=== PATIENT | female | born 1995 | race Caucasian/White ===

== ENCOUNTER 2018-06-25 00:30 | Emergency (ER) | payer MEDICAID ==
[2018-06-25] MEDS ORDERED: Sodium Chloride 0.9% 10 ML Syringe FLUSH PRN (00:54)
[2018-06-25] MEDS ORDERED: Sodium Chloride 0.9% 1,000 ML IV ONE (00:54)
--- NOTE | 2018-06-25 01:06 | EDM.PDOC ---
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 Pt denies vaginal bleed, denies vaginal discharge. Pt denies dysuria , frequency or urgency. Pt without nausea/vomiting. Pt with recent history of C diff and currently tapering vancomycin but denies any diarrhea/constipation or increased flatus. Pt without fever/chills. No back pain. Pt reports pain is worse with standing and walking and improved with lying down. Onset: Today Duration: Hour(s): (2) Location: Reports: Pelvis Quality: Reports: Ache Severity: Moderate Improves with: Reports: Rest Worsens with: Reports: Movement Associated Symptoms: Reports: No Other Symptoms. Denies: Cough, Fever/Chills, Nausea/Vomiting, Shortness of Breath right lower abdomen Pain Score (Numeric/FACES): 8 - Related Data Allergies Allergy/AdvReac Type Severity Reaction Status Date / Time venom-honey bee Allergy Swelling Verified 06/25/18 00:59 [bee venom (honey bee)] Home Meds: Home Meds Ondansetron [Zofran ODT] 4 mg PO Q6H PRN 05/10/18 [History] PNV95/Ferrous Fumarate/FA [ Tablet] 1 tab PO DAILY 05/10/18 [History] Acetaminophen [Tylenol] 650 mg PO Q4H PRN tablet 05/12/18 [Rx] Ferrous Sulfate 200 mg PO MoWeFr@0800 05/31/18 [History] Promethazine [Phenergan] 25 mg PO Q6H PRN 05/31/18 [History] Cephalexin [Keflex] 500 mg PO Q8HR #18 capsule 06/25/18 [Rx] Vancomycin HCl 125 mg PO ASDIRECTED 06/25/18 [History] Past Medical History HEENT History: Reports: Impaired Vision Cardiovascular History: Reports: None Respiratory History: Reports: None Gastrointestinal History: Reports: None Genitourinary History: Reports: None 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, , 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 Musculoskeletal History: Reports: None Neurological History: Reports: None Other Neuro History: complains of dizziness today Psychiatric History: Reports: Anxiety, Depression, Panic Attack Endocrine/Metabolic History: Reports: None Hematologic History: Reports: None Immunologic History: Reports: None Oncologic (Cancer) History: Reports: None - Infectious Disease History Infectious Disease History: Reports: C-Difficile, Chicken Pox - Past Surgical History Female Surgical History: Reports: D&C Social & Family History - Family History Family Medical History: Noncontributory - Caffeine Use Caffeine Use: Reports: None ED ROS GENERAL - Review of Systems Review Of Systems: See Below Constitutional: Reports: No Symptoms HEENT: Reports: No Symptoms Respiratory: Reports: No Symptoms Cardiovascular: Reports: No Symptoms Endocrine: Reports: No Symptoms GI/Abdominal: Reports: Abdominal Pain. Denies: Black Stool, Bloody Stool, Constipation, Diarrhea, Decreased Appetite, Flatus, Hematemesis, Hematochezia, Melena, Nausea, Vomiting : Reports: No Symptoms Musculoskeletal: Reports: No Symptoms Skin: Reports: No Symptoms Neurological: Reports: No Symptoms Psychiatric: Reports: No Symptoms Hematologic/Lymphatic: Reports: No Symptoms ED EXAM - Physical Exam Exam: See Below Exam Limited By: No Limitations General Appearance: Alert, WD/WN, No Apparent Distress Head: Atraumatic, Normocephalic Neck: Normal Inspection, Supple, Non-Tender, Full Range of Motion Respiratory/Chest: No Respiratory Distress, Lungs Clear, Normal Breath Sounds, No Accessory Muscle Use, Chest Non-Tender Cardiovascular: Normal Peripheral Pulses, Regular Rate, Rhythm, No Edema, No Gallop, No JVD, No Murmur, No Rub Fundal Height In cm: 21 (Female) Exam: Other (patient deferred due to no vaginal bleeding or discharge at this time) Heart Tones per Min: 161 Movement: Active Back Exam: Normal Inspection, Full Range of Motion, NT Extremities: Normal Inspection, Normal Range of Motion, Non-Tender, Normal Capillary Refill, No Pedal Edema Neurological: Alert, Oriented, CN II-XII Intact, Normal Cognition, Normal Gait, Normal Reflexes, No Motor/Sensory Deficits Psychiatric: Normal Affect, Normal Mood Skin Exam: Warm, Dry, Intact, Normal Color, No Rash Lymphatic: No Adenopathy Course - Vital Signs Last Recorded V/S: Last Vital Signs Temp 36.2 C 06/25/18 00:46 Pulse 88 06/25/18 00:46 Resp 16 06/25/18 00:46 BP 125/58 L 06/25/18 00:46 Pulse Ox 98 06/25/18 00:46 - Orders/Labs/Meds Orders: Active Orders 24 hr Category Date Time Status Peripheral IV Care [RC] . DIRECTED Care 06/25/18 00:54 Active CULTURE URINE [RM] Stat Lab 06/25/18 01:27 Ordered Sodium Chloride 0.9% @ 999 MLS/HR (1000ml) Med 06/25/18 00:54 Ordered Sodium Chloride 0.9% [Normal Saline] 1,000 ml IV .BOLUS Sodium Chloride 0.9% [Saline Flush] Med 06/25/18 00:54 Ordered 10 ml FLUSH Q8HR PRN Peripheral IV Insertion Adult [OM.PC] Routine Oth 06/25/18 00:54 Ordered Medication Orders Sodium Chloride (Normal Saline) 1,000 mls @ 999 mls/hr IV .BOLUS ONE Stop: 06/25/18 01:54 Last Admin: 06/25/18 01:23 Dose: 999 mls/hr Sodium Chloride (Saline Flush) 10 ml FLUSH Q8HR PRN PRN Reason: keep vein open Labs: Laboratory Tests 06/25/18 06/25/18 06/25/18 Range/Units 01:00 01:00 01:00 WBC 7.20 (5.00-10.00) 10^3/uL RBC 3.03 L (3.80-5.50) 10^6/uL Hgb 10.2 L (12.0-16.0) g/dL Hct 30.2 L (37.0-47.0) % MCV 99.7 H (82.0-92.0) fL MCH 33.7 H (27.0-31.0) pg MCHC 33.8 (32.0-36.0) g/dL RDW 13.2 (11.5-14.5) % Plt Count 280 (150-400) 10^3/uL MPV 8.5 (7.4-10.4) fL Immature Gran % (Auto) 0.7 (0.0-5.0) % Neut % (Auto) 61.8 (50.0-70.0) % Lymph % (Auto) 23.6 (20.0-40.0) % [place] % (Auto) 7.2 (2.0-8.0) % Eos % (Auto) 6.4 H (1.0-3.0) % Baso % (Auto) 0.3 (0.0-1.0) % Immature Gran # (Auto) 0.05 (0.00-0.50) 10^3/uL Neut # (Auto) 4.45 (2.50-7.00) 10^3/uL Lymph # (Auto) 1.70 (1.00-4.00) 10^3/uL [place] # (Auto) 0.52 (0.10-0.80) 10^3/uL Eos # (Auto) 0.46 H (0.10-0.30) 10^3/uL Baso # (Auto) 0.02 (0.00-0.10) 10^3/uL Sodium 139 (136-145) mmol/L Potassium 3.7 (3.3-5.3) mmol/L Chloride 102 (98-115) mmol/L Carbon Dioxide 25.9 (21.0-32.0) mmol/L Anion Gap 14.8 (5-15) mmol/L BUN 7 (6-25) mg/dL Creatinine 0.51 (0.51-1.17) mg/dL Est Cr Clr Drug Dosing 124.28 mL/min Estimated GFR (MDRD) > 60 mL/min Glucose 82 (75 - 99) mg/dL Calcium 8.5 L (8.7-10.3) mg/dL Specimen Type Urinvoid Urine Color Light yellow (YELLOW) Urine Appearance Turbid H (CLEAR) Urine pH 7.0 (5.0-9.0) Ur Specific [place] 1.020 (1.005-1.030) Urine Protein Negative (NEGATIVE) mg/dL Urine Glucose (UA) Negative (NEGATIVE) mg/dL Urine Ketones Negative (NEGATIVE) mg/dL Urine Occult Blood Negative (NEGATIVE) Urine Nitrite Negative (NEGATIVE) Urine Bilirubin Negative (NEGATIVE) Urine Urobilinogen 0.2 (0.2-1.0) E.U./dL Ur Leukocyte Esterase Negative (NEGATIVE) Urine RBC 0-5 (0-5) /HPF Urine WBC 0-5 (0-5) /HPF Ur Epithelial Cells Many H /LPF Urine Bacteria Many H (NONE TO FEW) /HPF Meds: Medications Generic Name Dose Route Start Last Admin Trade Name Freq PRN Reason Stop Dose Admin Sodium Chloride 1,000 mls @ 999 mls/hr 06/25/18 00:54 06/25/18 01:23 Normal Saline IV 06/25/18 01:54 999 mls/hr .BOLUS ONE Administration Sodium Chloride 10 ml 06/25/18 00:54 Saline Flush FLUSH Q8HR PRN keep vein open Discontinued Medications Generic Name Dose Route Start Last Admin Trade Name Freq PRN Reason Stop Dose Admin Acetaminophen 1,000 mg 06/25/18 01:08 Tylenol Extra Strength PO 06/25/18 01:09 ONETIME ONE Cephalexin 2,000 mg 06/25/18 01:27 Keflex PO 06/25/18 01:28 ONETIME ONE Departure - Departure Time of Disposition: 01:32 Disposition: Home, Self-Care 01 Condition: Good Clinical Impression: Round ligament pain Pelvic pain affecting Qualifiers: Trimester: second trimester Qualified Code(s): O26.892 - Other specified related conditions, second trimester; R10.2 - Pelvic and perineal pain Urinary tract infection Qualifiers: Hematuria presence: without hematuria - Discharge Information Prescriptions: Cephalexin [Keflex] 500 mg PO Q8HR #18 capsule Instructions: Urine Culture and Sensitivity Testing, and Urinary Tract Infection, Round Ligament Pain Referrals: Maryjane Bentley HEAD TURBINE OPERATOR [Nurse Practitioner] - Forms: ED Department Discharge Additional Instructions: 1. discharge home 2. keflex 500mg PO Q8 x 7 days 3. tylenol 1g PO Q6 PRN for pain 4. plenty of fluids 5. follow up in clinic next 48 hours for recheck and further evaluation and treatment 6. return to ER for worsening symptoms - My Orders Last 24 Hours: My Active Orders 06/25/18 00:54 Peripheral IV Care [RC] . DIRECTED Sodium Chloride 0.9% @ 999 MLS/HR (1000ml) Sodium Chloride 0.9% [Normal Saline] 1,000 ml IV .BOLUS Sodium Chloride 0.9% [Saline Flush] 10 ml FLUSH Q8HR PRN Peripheral IV Insertion Adult [OM.PC] Routine 06/25/18 01:27 CULTURE URINE [RM] Stat - Assessment/Plan Last 24 Hours: My Active Orders 06/25/18 00:54 Peripheral IV Care [RC] . DIRECTED Sodium Chloride 0.9% @ 999 MLS/HR (1000ml) Sodium Chloride 0.9% [Normal Saline] 1,000 ml IV .BOLUS Sodium Chloride 0.9% [Saline Flush] 10 ml FLUSH Q8HR PRN Peripheral IV Insertion Adult [OM.PC] Routine 06/25/18 01:27 CULTURE URINE [RM] Stat Assessment:: 1. pelvic pain- suspect round ligament pain 2. UTI Plan: 1. discharge home 2. keflex 500mg PO Q8 x 7 days 3. tylenol 1g PO Q6 PRN for pain 4. plenty of fluids 5. follow up in clinic next 48 hours for recheck and further evaluation and treatment 6. return to ER for worsening symptoms
[2018-06-25] MEDS ORDERED: Acetaminophen 500 MG Tab PO ONE (01:08)
[2018-06-25] MEDS ORDERED: Cephalexin 250 MG Cap PO ONE (01:27)
[2018-06-25 01:28] LABS: ANION GAP 14.8 mmol/L (5-15); CHLORIDE,CL 102 mmol/L (98-115); SODIUM,NA 139 mmol/L (136-145)
[2018-06-25 06:12] VITALS: BP 116/82
== END 2018-06-25 02:30 | disposition home or self-care (01) ==
LOC: KA.ED 00:30
DX: O26.892 Other specified pregnancy related conditions, second trimester (principal); R10.2 Pelvic and perineal pain; Z79.899 Other long term (current) drug therapy; Z3A.24 24 weeks gestation of pregnancy; Z91.030 Bee allergy status
CPT/HCPCS: 36415; 80048; 81001; 85025; 87086; 87088; 87186; 96360; 99284; A9270-GY; J7030

== ENCOUNTER 2018-07-28 21:31 | Emergency (ER) | payer MEDICAID ==
[2018-07-28] MEDS ORDERED: Sodium Chloride 0.9% 1,000 ML IV ONE (21:46)
[2018-07-28] MEDS ORDERED: Ondansetron 4 MG/2 ML SDV IVPUSH ONE (21:47)
--- NOTE | 2018-07-28 22:23 | EDM.PDOC ---
ED HPI GENERAL MEDICAL PROBLEM - General Chief Complaint: General Stated Complaint: nause influenza Time Seen by Provider: 07/28/18 22:08 Source of Information: Reports: Patient History Limitations: Reports: No Limitations - History of Present Illness INITIAL COMMENTS - FREE TEXT/NARRATIVE: Patient presents with nausea and vomiting that started about 9 hours ago. She has vomited twice. No diarrhea. She also saw her PCP this morning and tested positive for influenza A and started Tamiflu. She is 29 weeks gestation and says the is going well. She says she hasn't been able to keep anything down and tried some Zofran earlier at home; that didn't help so she decided to come in for fluids. - Related Data Allergies Allergy/AdvReac Type Severity Reaction Status Date / Time venom-honey bee Allergy Swelling Verified 06/25/18 00:59 [bee venom (honey bee)] Home Meds: Home Meds Ondansetron [Zofran ODT] 4 mg PO Q6H PRN 05/10/18 [History] PNV95/Ferrous Fumarate/FA [ Tablet] 1 tab PO DAILY 05/10/18 [History] Acetaminophen [Tylenol] 650 mg PO Q4H PRN tablet 05/12/18 [Rx] Ferrous Sulfate 200 mg PO MoWeFr@0800 05/31/18 [History] Oseltamivir [Tamiflu] 75 mg PO BID 07/28/18 [History] Past Medical History HEENT History: Reports: Impaired Vision Cardiovascular History: Reports: None Respiratory History: Reports: None Gastrointestinal History: Reports: None Genitourinary History: Reports: None 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, , 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 Musculoskeletal History: Reports: None Neurological History: Reports: None Other Neuro History: complains of dizziness today Psychiatric History: Reports: Anxiety, Depression, Panic Attack Endocrine/Metabolic History: Reports: None Hematologic History: Reports: None Immunologic History: Reports: None Oncologic (Cancer) History: Reports: None - Infectious Disease History Infectious Disease History: Reports: C-Difficile, Chicken Pox - Past Surgical History Female Surgical History: Reports: D&C Social & Family History - Family History Family Medical History: Noncontributory - Caffeine Use Caffeine Use: Reports: Tea ED ROS GENERAL - Review of Systems Review Of Systems: See Below Constitutional: Reports: Fever (99.2-99.8) HEENT: Reports: Throat Pain. Denies: Ear Pain Respiratory: Reports: Cough. Denies: Shortness of Breath Cardiovascular: Reports: Chest Pain (with cough). Denies: Syncope GI/Abdominal: Reports: Nausea, Vomiting. Denies: Abdominal Pain, Black Stool, Bloody Stool, Constipation, Diarrhea : Denies: Dysuria, Flank Pain, Hematuria Musculoskeletal: Reports: No Symptoms Skin: Denies: Cyanosis, Jaundice, Mottled, Pallor, Diaphoresis Neurological: Denies: Confusion, Seizure, Syncope, Weakness, Change in Speech Psychiatric: Denies: Agitation, Anxiety, Confusion ED EXAM, GENERAL - Physical Exam Exam: See Below Exam Limited By: No Limitations General Appearance: Alert, WD/WN, No Apparent Distress Eye Exam: Bilateral Eye: EOMI, Normal Inspection, PERRL Ears: Normal External Exam, Hearing Grossly Normal Nose: Normal Inspection, No Blood Throat/Mouth: Normal Inspection, Normal Lips, Normal Teeth, Normal Gums, Normal Oropharynx, Normal Voice, No Airway Compromise Head: Atraumatic, Normocephalic Neck: Normal Inspection, Full Range of Motion Respiratory/Chest: No Respiratory Distress, Lungs Clear, Normal Breath Sounds, No Accessory Muscle Use Cardiovascular: Regular Rate, Rhythm, No Murmur GI/Abdominal: Normal Bowel Sounds, Soft, Non-Tender, No Organomegaly, No Distention, No Abnormal Bruit, Other (gravid uterus consistent with stated dates ) Extremities: Normal Inspection, Normal Range of Motion Neurological: Alert, Oriented, Normal Cognition, No Motor/Sensory Deficits Psychiatric: Normal Affect, Normal Mood Skin Exam: Warm, Dry, Intact, Normal Color, No Rash Course - Orders/Labs/Meds Meds: Medications Discontinued Medications Generic Name Dose Route Start Last Admin Trade Name Freq PRN Reason Stop Dose Admin Sodium Chloride 1,000 mls @ 2,000 mls/hr 07/28/18 21:46 Normal Saline IV 07/28/18 22:15 .BOLUS ONE Ondansetron HCl 8 mg 07/28/18 21:47 Zofran IVPUSH 07/28/18 21:48 ONETIME ONE - Re-Assessments/Exams Free Text/Narrative Re-Assessment/Exam: 07/28/18 22:52 Fluids are running. Nausea is better after the IV Zofran and patient was able to take her Tamiflu that she couldn't keep down earlier at home. Discussed findings and treatment plan. Plan to finish the IV fluids then discharge to home. 07/28/18 23:23 Patient feeling better and has been stable throughout ER course. Will discharge to home. Departure - Departure Time of Disposition: 23:22 Disposition: Home, Self-Care 01 Condition: Good Clinical Impression: Influenza A, Third trimester at less than 36 weeks N&V (nausea and vomiting) Qualifiers: Vomiting type: unspecified Vomiting Intractability: unspecified Qualified Code( s): R11.2 - Nausea with vomiting, unspecified - Discharge Information Instructions: Third Trimester of , [id number], Influenza, Adult, [id number], Nausea, Adult Additional Instructions: 1. Try to drink 8 cups of water daily. 2. Continue your Zofran as directed for nausea and vomiting. 3. Follow up with your PCP on Tuesday if the nausea persists. 4. Return to ER as needed.
[2018-07-28 22:27] VITALS: BP 129/42
== END 2018-07-28 23:45 | disposition home or self-care (01) ==
LOC: KA.ED 21:31
DX: O98.513 Other viral diseases complicating pregnancy, third trimester (principal); J10.1 Influenza due to other identified influenza virus with other respiratory manifestations; Z91.030 Bee allergy status
CPT/HCPCS: 96361; 96374; 99283-25; J2405; J7030

== ENCOUNTER 2018-09-11 20:57 | Emergency (ER) | payer MEDICAID ==
[2018-09-11 21:00] VITALS: BP 129/57
--- NOTE | 2018-09-11 21:18 | EDM.PDOC ---
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 Patient states at approximately 8 p.m. this evening , she noticed a small amount of dark vaginal bleeding while taking a bath. Patient states that the has been uneventful, she has had occasional contractions over the last week, but has had no contractions this evening. This is the first time she's had vaginal bleeding during . Patient has history of 1 miscarriage. Patient denies chest pain, shortness of breath, current abdominal contractions, dysuria, diagnosis of placenta previa, or any trauma. Onset: Today Onset Date: 09/11/18 Onset Time: 20:00 Duration: Minutes: Severity: Mild Improves with: Reports: None Worsens with: Reports: None Context: Denies: Activity, Lifting, Trauma Associated Symptoms: Reports: No Other Symptoms - Related Data Allergies Allergy/AdvReac Type Severity Reaction Status Date / Time venom-honey bee Allergy Swelling Verified 09/11/18 20:58 [bee venom (honey bee)] Home Meds: Home Meds Ondansetron [Zofran ODT] 4 mg PO Q6H PRN 05/10/18 [History] PNV95/Ferrous Fumarate/FA [ Tablet] 1 tab PO DAILY 05/10/18 [History] Acetaminophen [Tylenol] 650 mg PO Q4H PRN tablet 05/12/18 [Rx] Ferrous Sulfate 200 mg PO MoWeFr@0800 05/31/18 [History] Past Medical History HEENT History: Reports: Impaired Vision Cardiovascular History: Reports: None Respiratory History: Reports: None Other Respiratory History: current influenza Gastrointestinal History: Reports: None Other Gastrointestinal History: clostridium difficile history Genitourinary History: Reports: None 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, , 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 Musculoskeletal History: Reports: None Neurological History: Reports: None Other Neuro History: complains of dizziness today Psychiatric History: Reports: Anxiety, Depression, Panic Attack Endocrine/Metabolic History: Reports: None Hematologic History: Reports: None Immunologic History: Reports: None Oncologic (Cancer) History: Reports: None - Infectious Disease History Infectious Disease History: Reports: C-Difficile, Chicken Pox - Past Surgical History Female Surgical History: Reports: D&C Social & Family History - Family History Family Medical History: Noncontributory - Caffeine Use Caffeine Use: Reports: Tea ED ROS GENERAL - Review of Systems Review Of Systems: ROS reveals no pertinent complaints other than HPI. Constitutional: Reports: No Symptoms HEENT: Reports: No Symptoms Respiratory: Reports: No Symptoms Cardiovascular: Reports: No Symptoms Endocrine: Reports: No Symptoms GI/Abdominal: Reports: No Symptoms : Reports: Other (Vaginal bleeding in third trimester) Musculoskeletal: Reports: No Symptoms Skin: Reports: No Symptoms Neurological: Reports: No Symptoms Psychiatric: Reports: No Symptoms Hematologic/Lymphatic: Reports: No Symptoms Immunologic: Reports: No Symptoms ED EXAM - Physical Exam Exam: See Below Exam Limited By: No Limitations General Appearance: Alert, WD/WN, No Apparent Distress Throat/Mouth: Normal Inspection, Normal Oropharynx, No Airway Compromise Respiratory/Chest: No Respiratory Distress, Lungs Clear, Normal Breath Sounds, No Accessory Muscle Use, Chest Non-Tender Cardiovascular: Regular Rate, Rhythm Fundal Height In cm: 34 (Female) Exam: Deferred for Placenta Previa, Other (Visualization shows no active vaginal bleeding). No: Vaginal Bleeding Heart Tones per Min: 150 Movement: Not Appreciated Back Exam: Normal Inspection. No: CVA Tenderness (L), CVA Tenderness (R) Extremities: Normal Inspection, No Pedal Edema Neurological: Alert, Oriented, Normal Cognition Psychiatric: Normal Affect, Normal Mood Skin Exam: Warm, Dry, Intact, Normal Color, No Rash Course - Vital Signs Last Recorded V/S: Last Vital Signs Temp 95.9 F 09/11/18 20:59 Pulse 94 09/11/18 20:59 Resp 18 09/11/18 20:59 BP 129/57 L 09/11/18 20:59 Pulse Ox 100 09/11/18 20:59 - Re-Assessments/Exams Free Text/Narrative Re-Assessment/Exam: 09/11/18 21:18 Patient afebrile, nontoxic appearing, vital signs stable. heart tones appreciated at left lateral border and 150 bpm.. Patient denies any contractions at this time. Patient will be discharged and follow-up with OB/ ECHOCARDIOGRAPHY RADIOLOGY TECHNOLOGIST in one to 2 days. Patient will return to the ER sooner if symptoms continue or worsen. Departure - Departure Time of Disposition: 21:20 Disposition: Home, Self-Care 01 Condition: Good Clinical Impression: Third trimester , Vaginal bleeding during - Discharge Information Instructions: Third Trimester of , [id number], Vaginal Bleeding During , Third Trimester, [id number] Additional Instructions: Follow-up with INFORMATION COORDINATOR in next 1-2 days. Return to emergency department sooner if contractions develop, or bleeding continues. - Assessment/Plan Assessment:: Plan: Follow-up with INFORMATION COORDINATOR
== END 2018-09-11 21:26 | disposition home or self-care (01) ==
LOC: KA.ED 20:57
DX: O46.93 Antepartum hemorrhage, unspecified, third trimester (principal); Z3A.36 36 weeks gestation of pregnancy
CPT/HCPCS: 99283

== ENCOUNTER 2018-09-17 16:14 | Emergency (ER) | payer MEDICAID ==
[2018-09-17 16:27] VITALS: BP 117/49
--- NOTE | 2018-09-17 16:53 | EDM.PDOC ---
ED HPI GENERAL MEDICAL PROBLEM - General Chief Complaint: REBAR FABRICATOR Problem Stated Complaint: 36 WEEKS - CRAMPS Time Seen by Provider: 09/17/18 16:20 Source of Information: Reports: Patient History Limitations: Reports: No Limitations - History of Present Illness INITIAL COMMENTS - FREE TEXT/NARRATIVE: Srikanth BRADLEY [id number] 37weeks IUP presents to ER with intermittent abdominal contractions. Pt was seen by REBAR FABRICATOR 2 days ago and told she's 1cm dilated and has lost her mucous plug. Pt reports cramping is mild in character. Pt denies rupture of membranes or any vaginal bleeding. Pt denies dysuria, frequency or urgency. Pt states contractions are infrequent and mild in character. Onset: Today Duration: Hour(s): (8) Location: Reports: Abdomen Severity: Mild Improves with: Reports: None Worsens with: Reports: None Associated Symptoms: Reports: No Other Symptoms Abdominal Pain Score (Numeric/FACES): 7 - Related Data Allergies Allergy/AdvReac Type Severity Reaction Status Date / Time venom-honey bee Allergy Swelling Verified 09/17/18 16:21 [bee venom (honey bee)] Home Meds: Home Meds Ondansetron [Zofran ODT] 4 mg PO Q6H PRN 05/10/18 [History] PNV95/Ferrous Fumarate/FA [ Tablet] 1 tab PO DAILY 05/10/18 [History] Acetaminophen [Tylenol] 650 mg PO Q4H PRN tablet 05/12/18 [Rx] Ferrous Sulfate 200 mg PO MoWeFr@0800 05/31/18 [History] Past Medical History HEENT History: Reports: Impaired Vision Cardiovascular History: Reports: Heart Murmur Respiratory History: Reports: None Other Respiratory History: current influenza Gastrointestinal History: Reports: None Other Gastrointestinal History: clostridium difficile history Genitourinary History: Reports: None REBAR FABRICATOR History: Reports: , Spontaneous Other REBAR FABRICATOR History: Pt currently due October 08, 2018. Pt 2 Musculoskeletal History: Reports: None Neurological History: Reports: None Other Neuro History: complains of dizziness today Psychiatric History: Reports: Anxiety, Depression, Panic Attack Endocrine/Metabolic History: Reports: None Hematologic History: Reports: Anemia Immunologic History: Reports: None Oncologic (Cancer) History: Reports: None Dermatologic History: Reports: None - Infectious Disease History Infectious Disease History: Reports: C-Difficile - Past Surgical History Cardiovascular Surgical History: Reports: None GI Surgical History: Reports: None Female Surgical History: Reports: D&C Musculoskeletal Surgical History: Reports: None Social & Family History - Family History Family Medical History: Noncontributory - Tobacco Use Smoking Status *Q: Never Smoker - Caffeine Use Caffeine Use: Reports: None - Recreational Drug Use Recreational Drug Use: No ED ROS GENERAL - Review of Systems Review Of Systems: See Below Constitutional: Reports: No Symptoms HEENT: Reports: No Symptoms Respiratory: Reports: No Symptoms Cardiovascular: Reports: No Symptoms Endocrine: Reports: No Symptoms GI/Abdominal: Reports: Abdominal Pain. Denies: Nausea, Vomiting : Reports: No Symptoms Musculoskeletal: Reports: No Symptoms Skin: Reports: No Symptoms Neurological: Reports: No Symptoms Psychiatric: Reports: No Symptoms Hematologic/Lymphatic: Reports: No Symptoms Immunologic: Reports: No Symptoms ED EXAM - Physical Exam Exam: See Below Exam Limited By: No Limitations General Appearance: Alert, WD/WN, No Apparent Distress Respiratory/Chest: No Respiratory Distress, Lungs Clear, Normal Breath Sounds, No Accessory Muscle Use, Chest Non-Tender Cardiovascular: Normal Peripheral Pulses, Regular Rate, Rhythm, No Edema, No Gallop, No JVD, No Murmur, No Rub GI/Abdominal Exam: Normal Bowel Sounds, Soft, Non-Tender, No Organomegaly, No Distention, No Abnormal Bruit, No Mass, Pelvis Stable (Female) Exam: Normal Bimanual Exam, Normal External Exam, Normal Speculum Exam, Cervical Dilatation, Enlarged Uterus. No: Cervical Discharge, Cervical Fluid Heart Tones: Present Heart Tones per Min: 145 Movement: Active Back Exam: Normal Inspection, Full Range of Motion, NT Extremities: Normal Inspection, Normal Range of Motion, Non-Tender, Normal Capillary Refill, No Pedal Edema Neurological: Alert, Oriented, CN II-XII Intact, Normal Cognition, Normal Gait, Normal Reflexes, No Motor/Sensory Deficits Psychiatric: Normal Affect, Normal Mood Skin Exam: Warm, Dry, Intact, Normal Color, No Rash Lymphatic: No Adenopathy Course - Vital Signs Last Recorded V/S: Last Vital Signs Temp 36.0 C 09/17/18 16:22 Pulse 67 09/17/18 16:22 Resp 20 09/17/18 16:22 BP 117/49 L 04/21/19 16:22 Pulse Ox 100 09/17/18 16:22 - Re-Assessments/Exams Free Text/Narrative Re-Assessment/Exam: 09/17/18 17:17 toco-monitor- no contractions 45 minutes; no decelerations in HR in 45 minutes Departure - Departure Time of Disposition: 17:18 Disposition: Home, Self-Care 01 Condition: Good Clinical Impression: Casimiro Buchanan' contraction - Discharge Information Instructions: Amelia Buchanan Contractions Referrals: Maryjane Bentley CANTEEN MANAGER [Primary Care Provider] - Forms: ED Department Discharge Additional Instructions: 1. discharge home 2. instructed to return if contractions are less than 5 minutes apart. 3. Increase fluid consumption 4. pelvic rest 5. call/follow up with REBAR FABRICATOR this week for recheck 6. return to ER for worsening symptoms - Assessment/Plan Assessment:: 1. Casimiro Buchanan contractions Plan: 1. discharge home 2. instructed to return if contractions are less than 5 minutes apart. 3. Increase fluid consumption 4. pelvic rest 5. call/follow up with REBAR FABRICATOR this week for recheck 6. return to ER for worsening symptoms
== END 2018-09-17 17:22 | disposition home or self-care (01) ==
LOC: KA.ED 16:14
DX: O47.1 False labor at or after 37 completed weeks of gestation (principal); Z3A.37 37 weeks gestation of pregnancy; Z91.030 Bee allergy status
CPT/HCPCS: 99283

== ENCOUNTER 2018-09-26 10:20 | Emergency (ER) | payer OTHER, MEDICAID ==
[2018-09-26] MEDS ORDERED: Sodium Chloride 0.9% 10 ML Syringe FLUSH PRN (10:48)
[2018-09-26 11:06] VITALS: BP 126/64
--- NOTE | 2018-09-26 11:06 | EDM.PDOC ---
ED HPI GENERAL MEDICAL PROBLEM - General Chief Complaint: MUSIC THERAPY SPECIALIST Problem Stated Complaint: 8.5 MONTHS - CONTRACTIONS? Time Seen by Provider: 09/26/18 11:01 Source of Information: Reports: Patient History Limitations: Reports: No Limitations - History of Present Illness INITIAL COMMENTS - FREE TEXT/NARRATIVE: Patient is a 23-year-old female who presents emergency Department this morning with a complaint of contractions. Patient is 38 weeks 2 days . Patient was seen by MUSIC THERAPY SPECIALIST yesterday, had an ultrasound and was told that progression of was going well. Patient denies any large amount of vaginal fluid, but said she did notice small amount in panty liner today. Patient states that approximately 8 a.m. this morning she developed contractions that were approximately 15-20 minutes apart. She contacted her OB/ INFORMATION SECURITY OFFICER office, but was unsuccessful in speaking to the doctor. She decided to proceed to the ER. Upon presentation to the ER patient was evaluated and found to be in contractions 5 to 6 minutes apart, with heart tones 120-140. There was an acceleration of heart tones, however, no deceleration. Patient denies chest pain, shortness of breath, fever, or any trauma. Onset: Today Onset Date: 09/26/18 Onset Time: 08:00 Duration: Hour(s):, Getting Worse Location: Reports: Abdomen Quality: Reports: Other (Contractions) Severity: Mild Improves with: Reports: None Worsens with: Reports: None Associated Symptoms: Reports: No Other Symptoms. Denies: Chest Pain, Fever/ Chills, Nausea/Vomiting, Shortness of Breath - Related Data Allergies Allergy/AdvReac Type Severity Reaction Status Date / Time venom-honey bee Allergy Swelling Verified 09/26/18 10:49 [bee venom (honey bee)] Home Meds: Home Meds Ondansetron [Zofran ODT] 4 mg PO Q6H PRN 05/10/18 [History] PNV95/Ferrous Fumarate/FA [ Tablet] 1 tab PO DAILY 05/10/18 [History] Acetaminophen [Tylenol] 650 mg PO Q4H PRN tablet 05/12/18 [Rx] Ferrous Sulfate 200 mg PO MoWeFr@0800 05/31/18 [History] Past Medical History HEENT History: Reports: Impaired Vision Cardiovascular History: Reports: Heart Murmur Respiratory History: Reports: None Other Respiratory History: current influenza Gastrointestinal History: Reports: None Other Gastrointestinal History: clostridium difficile history Genitourinary History: Reports: None MUSIC THERAPY SPECIALIST History: Reports: , Spontaneous Other MUSIC THERAPY SPECIALIST History: Pt currently due October 08, 2018. Pt 2 Musculoskeletal History: Reports: None Neurological History: Reports: None Other Neuro History: complains of dizziness today Psychiatric History: Reports: Anxiety, Depression, Panic Attack Endocrine/Metabolic History: Reports: None Hematologic History: Reports: Anemia Immunologic History: Reports: None Oncologic (Cancer) History: Reports: None Dermatologic History: Reports: None - Infectious Disease History Infectious Disease History: Reports: C-Difficile - Past Surgical History Cardiovascular Surgical History: Reports: None GI Surgical History: Reports: None Female Surgical History: Reports: D&C Musculoskeletal Surgical History: Reports: None Social & Family History - Family History Family Medical History: Noncontributory - Caffeine Use Caffeine Use: Reports: None ED ROS GENERAL - Review of Systems Review Of Systems: ROS reveals no pertinent complaints other than HPI. Constitutional: Reports: No Symptoms HEENT: Reports: No Symptoms Respiratory: Reports: No Symptoms Cardiovascular: Reports: No Symptoms Endocrine: Reports: No Symptoms GI/Abdominal: Reports: Abdominal Pain : Reports: No Symptoms Musculoskeletal: Reports: No Symptoms Skin: Reports: No Symptoms Neurological: Reports: No Symptoms Psychiatric: Reports: No Symptoms Hematologic/Lymphatic: Reports: No Symptoms Immunologic: Reports: No Symptoms ED EXAM - Physical Exam Exam: See Below Exam Limited By: No Limitations General Appearance: Alert, WD/WN, No Apparent Distress Throat/Mouth: Normal Inspection, Normal Oropharynx, No Airway Compromise Head: Atraumatic, Normocephalic Neck: Normal Inspection Respiratory/Chest: No Respiratory Distress, Lungs Clear, Normal Breath Sounds, No Accessory Muscle Use, Chest Non-Tender Cardiovascular: Regular Rate, Rhythm, No Murmur (Female) Exam: Deferred for Placenta Previa, Other (Vaginal extrication has pH of 6) Heart Tones per Min: 120 Movement: Not Appreciated Back Exam: Normal Inspection. No: CVA Tenderness (L), CVA Tenderness (R) Extremities: Normal Inspection, No Pedal Edema Neurological: Alert, Oriented, Normal Cognition Psychiatric: Normal Affect, Normal Mood Skin Exam: Warm, Dry, Intact, Normal Color, No Rash ED DELIVERY OF - General Source: Reports: Patient Exam Limitations: Reports: None - History of Present Illness Timing/Duration: Labor Began: Hour(s): ED Add Procedures - Additional/Other Procedure(s) Procedure(s) (Free Text): Vaginal fluid PH level at 6.0 Course - Vital Signs Last Recorded V/S: Last Vital Signs Temp 97.5 F 09/26/18 10:20 Pulse 76 09/26/18 10:20 Resp 20 09/26/18 10:20 BP 126/64 09/26/18 10:20 Pulse Ox 98 09/26/18 10:20 - Orders/Labs/Meds Orders: Active Orders 24 hr Category Date Time Status COMPREHENSIVE METABOLIC PN,CMP [CHEM] Stat Lab 09/26/18 10:47 Ordered HCG QUANTITATIVE [CHEM] Stat Lab 09/26/18 10:47 Ordered Sodium Chloride 0.9% [Normal Saline] 1,000 ml Med 09/26/18 11:30 Active IV ASDIRECTED Sodium Chloride 0.9% [Saline Flush] Med 09/26/18 10:48 Active 10 ml FLUSH Q8HR PRN Saline Lock Insert [OM.PC] Routine Oth 09/26/18 10:48 Ordered Medication Orders Sodium Chloride (Normal Saline) 1,000 mls @ 125 mls/hr IV ASDIRECTED JALEN Sodium Chloride (Saline Flush) 10 ml FLUSH Q8HR PRN PRN Reason: keep vein open Labs: Laboratory Tests 09/26/18 Range/Units 10:50 WBC 8.48 (5.00-10.00) 10^3/uL RBC 3.75 L (3.80-5.50) 10^6/uL Hgb 12.1 D (12.0-16.0) g/dL Hct 35.8 L (37.0-47.0) % MCV 95.5 H D (82.0-92.0) fL MCH 32.3 H (27.0-31.0) pg MCHC 33.8 (32.0-36.0) g/dL RDW 13.0 (11.5-14.5) % Plt Count 226 (150-400) 10^3/uL MPV 10.1 (7.4-10.4) fL Immature Gran % (Auto) 0.6 (0.0-5.0) % Neut % (Auto) 78.0 H (50.0-70.0) % Lymph % (Auto) 14.9 L (20.0-40.0) % [place] % (Auto) 5.1 (2.0-8.0) % Eos % (Auto) 1.2 (1.0-3.0) % Baso % (Auto) 0.2 (0.0-1.0) % Immature Gran # (Auto) 0.05 (0.00-0.50) 10^3/uL Neut # (Auto) 6.62 (2.50-7.00) 10^3/uL Lymph # (Auto) 1.26 (1.00-4.00) 10^3/uL [place] # (Auto) 0.43 (0.10-0.80) 10^3/uL Eos # (Auto) 0.10 (0.10-0.30) 10^3/uL Baso # (Auto) 0.02 (0.00-0.10) 10^3/uL Meds: Medications Generic Name Dose Route Start Last Admin Trade Name Freq PRN Reason Stop Dose Admin Sodium Chloride 1,000 mls @ 125 mls/hr 09/26/18 11:30 Normal Saline IV ASDIRECTED JALEN Sodium Chloride 10 ml 09/26/18 10:48 Saline Flush FLUSH Q8HR PRN keep vein open - Re-Assessments/Exams Free Text/Narrative Re-Assessment/Exam: 09/26/18 11:20 Patient afebrile, vital signs stable, contractions 5-6 minutes apart, heart tones 120-130, acceleration, but no deceleration. Discussed case with Dr. Peralta, MUSIC THERAPY SPECIALIST at [facility]. Recommended transfer to her facility for further care Departure - Departure Time of Disposition: 11:22 Disposition: DC/Tfer to Acute Hospital 02 Condition: Fair Clinical Impression: Intrauterine , Third trimester , related condition in third trimester - Discharge Information Referrals: Maryjane Bentley SENIOR PROJECT MANAGER [Primary Care Provider] - Forms: ED Department Discharge - My Orders Last 24 Hours: My Active Orders 09/26/18 10:47 COMPREHENSIVE METABOLIC PN,CMP [CHEM] Stat HCG QUANTITATIVE [CHEM] Stat 09/26/18 10:48 Sodium Chloride 0.9% [Saline Flush] 10 ml FLUSH Q8HR PRN Saline Lock Insert [OM.PC] Routine 09/26/18 11:30 Sodium Chloride 0.9% [Normal Saline] 1,000 ml IV ASDIRECTED - Assessment/Plan Last 24 Hours: My Active Orders 09/26/18 10:47 COMPREHENSIVE METABOLIC PN,CMP [CHEM] Stat HCG QUANTITATIVE [CHEM] Stat 09/26/18 10:48 Sodium Chloride 0.9% [Saline Flush] 10 ml FLUSH Q8HR PRN Saline Lock Insert [OM.PC] Routine 09/26/18 11:30 Sodium Chloride 0.9% [Normal Saline] 1,000 ml IV ASDIRECTED Assessment:: Plan: Transferred to [facility]
[2018-09-26] MEDS: Sodium Chloride 0.9% 1,000 ML IV SCH (11:30)
[2018-09-26 12:18] LABS: SODIUM,NA 136 mmol/L (136-145)
[2018-09-26 12:19] LABS: CHLORIDE,CL 104 mmol/L (98-115)
== END 2018-09-26 11:50 ==
LOC: KA.ED 10:20
DX: O62.9 Abnormality of forces of labor, unspecified (principal); Z3A.38 38 weeks gestation of pregnancy; Z91.030 Bee allergy status; Z79.899 Other long term (current) drug therapy
CPT/HCPCS: 36415; 80053; 84702; 85025; 99284; 99285; J7030

== ENCOUNTER 2018-11-20 22:03 | Emergency (ER) | payer OTHER, MEDICAID ==
[2018-11-20 22:28] VITALS: BP 103/35
--- NOTE | 2018-11-20 22:45 | EDM.PDOC ---
ED HPI GENERAL MEDICAL PROBLEM - General Chief Complaint: FREIGHT BRAKEMAN Problem Stated Complaint: dysuria/hematuria Time Seen by Provider: 11/20/18 22:20 Source of Information: Reports: Patient History Limitations: Reports: No Limitations - History of Present Illness INITIAL COMMENTS - FREE TEXT/NARRATIVE: 23 YO WF who is 8 weeks post vaginal delivery presents to ER complaining of questionable vaginal bleeding which began earlier in the day. Pt reports she has been wearing pads and noticed after a full day of wearing a panty liner that there was a small amount of blood on the pad. Pt became concerned that she was bleeding from her epitomes sight. Upon further interview pt reports dysuria with frequency which also began today. Pt states the bleeding is not significant and is much less than her normal menstrual bleeding. Pt denies pelvic pain, fever/chills, dizziness, back pain or nausea/vomiting. Onset: Today Severity: Mild Improves with: Reports: None Worsens with: Reports: None Associated Symptoms: Reports: No Other Symptoms. Denies: Fever/Chills, Nausea/ Vomiting, Weakness Perineal Area Pain Score (Numeric/FACES): 5 - Related Data Allergies Allergy/AdvReac Type Severity Reaction Status Date / Time venom-honey bee Allergy Swelling Verified 11/20/18 22:04 [bee venom (honey bee)] Home Meds: Home Meds Ondansetron [Zofran ODT] 4 mg PO Q6H PRN 05/10/18 [History] PNV95/Ferrous Fumarate/FA [ Tablet] 1 tab PO DAILY 05/10/18 [History] Acetaminophen [Tylenol] 650 mg PO Q4H PRN tablet 05/12/18 [Rx] Cephalexin [Keflex] 500 mg PO Q8HR #21 capsule 11/20/18 [Rx] Norethindrone 0.35 mg PO DAILY 11/20/18 [History] oxyCODONE 2.5 mg PO DAILY 11/20/18 [History] Past Medical History HEENT History: Reports: Impaired Vision Cardiovascular History: Reports: Heart Murmur Respiratory History: Reports: None Other Respiratory History: current influenza Gastrointestinal History: Reports: None Other Gastrointestinal History: clostridium difficile history Genitourinary History: Reports: None FREIGHT BRAKEMAN History: Reports: , Spontaneous , Other (See Below) Other FREIGHT BRAKEMAN History: Pt currently due October 08, 2018. Pt 2 Musculoskeletal History: Reports: None Neurological History: Reports: None Other Neuro History: complains of dizziness today Psychiatric History: Reports: Anxiety, Depression, Panic Attack Endocrine/Metabolic History: Reports: None Hematologic History: Reports: Anemia Immunologic History: Reports: None Oncologic (Cancer) History: Reports: None Dermatologic History: Reports: None - Infectious Disease History Infectious Disease History: Reports: C-Difficile - Past Surgical History Cardiovascular Surgical History: Reports: None GI Surgical History: Reports: None Female Surgical History: Reports: D&C Musculoskeletal Surgical History: Reports: None Social & Family History - Family History Family Medical History: Noncontributory - Tobacco Use Smoking Status *Q: Never Smoker - Caffeine Use Caffeine Use: Reports: None Caffeine Use Comment: did not ask - Recreational Drug Use Recreational Drug Use: No ED ROS GENERAL - Review of Systems Review Of Systems: See Below Constitutional: Reports: No Symptoms HEENT: Reports: No Symptoms Respiratory: Reports: No Symptoms Cardiovascular: Reports: No Symptoms Endocrine: Reports: No Symptoms GI/Abdominal: Reports: No Symptoms : Reports: Dysuria, Frequency, Hematuria Musculoskeletal: Reports: No Symptoms Skin: Reports: No Symptoms Neurological: Reports: No Symptoms Psychiatric: Reports: No Symptoms Hematologic/Lymphatic: Reports: No Symptoms Immunologic: Reports: No Symptoms ED EXAM, RENAL/ - Physical Exam Exam: See Below Exam Limited By: No Limitations General Appearance: Alert, WD/WN, No Apparent Distress Head: Atraumatic, Normocephalic Neck: Normal Inspection, Supple, Non-Tender, Full Range of Motion Respiratory/Chest: No Respiratory Distress, Lungs Clear, Normal Breath Sounds, No Accessory Muscle Use, Chest Non-Tender Cardiovascular: Normal Peripheral Pulses, Regular Rate, Rhythm, No Edema, No Gallop, No JVD, No Murmur, No Rub GI/Abdominal: Normal Bowel Sounds, Soft, Non-Tender, No Organomegaly, No Distention, No Abnormal Bruit, No Mass (Female) Exam: Normal External Exam. No: Vaginal Bleeding, Vaginal Discharge , Vaginal Lesions, Vaginal Tears Back Exam: Normal Inspection, Full Range of Motion, NT Extremities: Normal Inspection, Normal Range of Motion, Non-Tender, Normal Capillary Refill, No Pedal Edema Neurological: Alert, Oriented, CN II-XII Intact, Normal Cognition, Normal Gait, Normal Reflexes, No Motor/Sensory Deficits Psychiatric: Normal Affect, Normal Mood Skin Exam: Warm, Dry, Intact, Normal Color, No Rash Lymphatic: No Adenopathy Course - Vital Signs Last Recorded V/S: Last Vital Signs Temp 36.1 C 11/20/18 22:09 Pulse 67 11/20/18 22:25 Resp 14 11/20/18 22:09 BP 103/35 L 11/20/18 22:25 Pulse Ox 97 11/20/18 22:09 Orthostatic Blood Pressure [ 110/51 Standing] Orthostatic Blood Pressure [ 113/40 Sitting] Orthostatic Blood Pressure [ 103/35 Supine] - Orders/Labs/Meds Orders: Active Orders 24 hr Category Date Time Status URINALYSIS W/MICROSCOPIC [UA W/MICROSCOPIC] [URIN] Stat Lab 11/20/18 22:36 Ordered Labs: Laboratory Tests 11/20/18 11/20/18 Range/Units 22:52 22:52 Urine Color Yellow (YELLOW) Urine Appearance Clear (CLEAR) Urine pH 6.0 (5.0-9.0) Ur Specific [place] 1.020 (1.005-1.030) Urine Protein Negative (NEGATIVE) mg/dL Urine Glucose (UA) Negative (NEGATIVE) mg/dL Urine Ketones Negative (NEGATIVE) mg/dL Urine Occult Blood Moderate H (NEGATIVE) Urine Nitrite Negative (NEGATIVE) Urine Bilirubin Negative (NEGATIVE) Urine Urobilinogen 0.2 (0.2-1.0) E.U./dL Ur Leukocyte Esterase Negative (NEGATIVE) Urine HCG, Qual Negative (NEGATIVE) Departure - Departure Time of Disposition: 23:19 Disposition: Home, Self-Care 01 Condition: Good Clinical Impression: Urinary tract infection Qualifiers: Urinary tract infection type: acute cystitis Hematuria presence: with hematuria Qualified Code(s): N30.01 - Acute cystitis with hematuria - Discharge Information Prescriptions: Cephalexin [Keflex] 500 mg PO Q8HR #21 capsule Instructions: Urinary Tract Infection, Adult Referrals: Maryjane Bentley JAVA PROGRAMMER [Primary Care Provider] - Forms: ED Department Discharge - My Orders Last 24 Hours: My Active Orders 11/20/18 22:36 URINALYSIS W/MICROSCOPIC [UA W/MICROSCOPIC] [URIN] Stat - Assessment/Plan Last 24 Hours: My Active Orders 11/20/18 22:36 URINALYSIS W/MICROSCOPIC [UA W/MICROSCOPIC] [URIN] Stat Assessment:: 1. uncomplicated UTI Plan: 1. discharge home 2. keflex 500mg PO Q8 x 7 days 3. urine culture pending 4. follow up with PCP for further evaluation and treatment pending urine culture 5. return to ER for worsening symptoms
[2018-11-20] MEDS ORDERED: Cephalexin 250 MG Cap PO ONE (23:18)
== END 2018-11-20 23:25 | disposition home or self-care (01) ==
LOC: KA.ED 22:03
DX: N30.01 Acute cystitis with hematuria (principal); Z79.899 Other long term (current) drug therapy; Z91.030 Bee allergy status
CPT/HCPCS: 81001; 81025; 87086; 99284; A9270-GY

== ENCOUNTER 2019-07-19 00:01 | Emergency (ER) | payer MEDICAID, OTHER ==
[2019-07-19] MEDS ORDERED: Sodium Chloride 0.9% 1,000 ML IV ONE (00:19)
[2019-07-19] MEDS ORDERED: Ondansetron 4 MG/2 ML SDV IVPUSH ONE (00:20)
--- NOTE | 2019-07-19 00:59 | EDM.PDOC ---
ED HPI GENERAL MEDICAL PROBLEM - General Chief Complaint: General Stated Complaint: nausea/vomiting Time Seen by Provider: 07/19/19 00:30 Source of Information: Reports: Patient History Limitations: Reports: No Limitations - History of Present Illness INITIAL COMMENTS - FREE TEXT/NARRATIVE: 24 YO WF presents to ER complaining of nausea/vomiting which began 8pm tonight. Pt reports she's been unable to tolerate fluids since vomiting began prompting ER evaluation. Pt with PMH of IBD/Ulcerative colitis. Pt denies any fever/chills , no abdominal pain, no diarrhea, no dysuria, or urinary frequency/urgency. Pt reports her IBD has been well controlled since her diagnosis 10/2018. Pt denies any recent illness, no cough/congestion, no shortness of breath or chest discomfort. Pt denies headache/neck pain or dizziness. Duration: Hour(s): (5) Location: Reports: Generalized Severity: Mild Improves with: Reports: None Worsens with: Reports: Eating Associated Symptoms: Reports: No Other Symptoms, Loss of Appetite, Nausea/ Vomiting. Denies: Chest Pain, Cough, Fever/Chills, Headaches, Rash, Shortness of Breath, Syncope - Related Data Allergies Allergy/AdvReac Type Severity Reaction Status Date / Time venom-honey bee Allergy Swelling Verified 07/19/19 01:52 [bee venom (honey bee)] Home Meds: Home Meds Acetaminophen [Tylenol] 650 mg PO Q4H PRN tablet 05/12/18 [Rx] Norethindrone 0.35 mg PO DAILY 11/20/18 [History] Budesonide [Budesonide ER] 9 mg PO QAM 07/19/19 [History] Dicyclomine [Bentyl] 20 mg PO DAILY PRN 07/19/19 [History] Hyoscyamine [Hyomax-SL] 0.125 mg PO DAILY PRN 07/19/19 [History] Ondansetron [Zofran ODT] 4 mg PO Q6H PRN #10 tab.dis 07/19/19 [Rx] azaTHIOprine [Azathioprine] 50 mg PO DAILY 07/19/19 [History] sulfaSALAzine 1,000 mg PO QID 07/19/19 [History] Past Medical History HEENT History: Reports: Impaired Vision Cardiovascular History: Reports: Heart Murmur Respiratory History: Reports: None Other Respiratory History: current influenza Gastrointestinal History: Reports: None Other Gastrointestinal History: clostridium difficile history Genitourinary History: Reports: None SALES CONSULTING DIRECTOR History: Reports: , Spontaneous , Other (See Below) Other SALES CONSULTING DIRECTOR History: Pt currently due October 08, 2018. Pt 2 Musculoskeletal History: Reports: None Neurological History: Reports: None Other Neuro History: complains of dizziness today Psychiatric History: Reports: Anxiety, Depression, Panic Attack Endocrine/Metabolic History: Reports: None Hematologic History: Reports: Anemia Immunologic History: Reports: None Oncologic (Cancer) History: Reports: None Dermatologic History: Reports: None - Infectious Disease History Infectious Disease History: Reports: C-Difficile - Past Surgical History Cardiovascular Surgical History: Reports: None GI Surgical History: Reports: None Female Surgical History: Reports: D&C Musculoskeletal Surgical History: Reports: None Social & Family History - Family History Family Medical History: Noncontributory - Caffeine Use Caffeine Use: Reports: None Caffeine Use Comment: did not ask ED ROS GENERAL - Review of Systems Review Of Systems: See Below Constitutional: Reports: No Symptoms HEENT: Reports: No Symptoms Respiratory: Reports: No Symptoms Cardiovascular: Reports: No Symptoms Endocrine: Reports: No Symptoms GI/Abdominal: Reports: Nausea, Vomiting. Denies: Abdominal Pain : Reports: No Symptoms Musculoskeletal: Reports: No Symptoms Skin: Reports: No Symptoms Neurological: Reports: No Symptoms Psychiatric: Reports: No Symptoms Hematologic/Lymphatic: Reports: No Symptoms Immunologic: Reports: No Symptoms ED EXAM, GENERAL - Physical Exam Exam: See Below Exam Limited By: No Limitations General Appearance: Alert, WD/WN, No Apparent Distress Throat/Mouth: Normal Inspection, Normal Lips, Normal Teeth, Normal Gums, Normal Oropharynx, Normal Voice, No Airway Compromise Head: Atraumatic, Normocephalic Neck: Normal Inspection, Supple, Non-Tender, Full Range of Motion Respiratory/Chest: No Respiratory Distress, Lungs Clear, Normal Breath Sounds, No Accessory Muscle Use, Chest Non-Tender Cardiovascular: Normal Peripheral Pulses, Regular Rate, Rhythm, No Edema, No Gallop, No JVD, No Murmur, No Rub GI/Abdominal: Normal Bowel Sounds, Soft, Non-Tender, No Organomegaly, No Distention, No Abnormal Bruit, No Mass Back Exam: Normal Inspection, Full Range of Motion, NT Extremities: Normal Inspection, Normal Range of Motion, Non-Tender, Normal Capillary Refill, No Pedal Edema Neurological: Alert, Oriented, CN II-XII Intact, Normal Cognition, Normal Gait, Normal Reflexes, No Motor/Sensory Deficits Psychiatric: Normal Affect, Normal Mood Skin Exam: Warm, Dry, Intact, Normal Color, No Rash Lymphatic: No Adenopathy Course - Vital Signs Last Recorded V/S: Last Vital Signs Temp 35.9 C L 07/19/19 00:51 Pulse 94 07/19/19 00:51 Resp 16 07/19/19 00:51 BP 110/60 07/19/19 00:51 Pulse Ox 95 07/19/19 00:51 - Orders/Labs/Meds Labs: Laboratory Tests 07/19/19 07/19/19 07/19/19 Range/Units 00:58 00:58 01:40 WBC 12.79 H (5.00-10.00) 10^3/uL RBC 3.94 (3.80-5.50) 10^6/uL Hgb 12.7 (12.0-16.0) g/dL Hct 37.5 (37.0-47.0) % MCV 95.2 H (82.0-92.0) fL MCH 32.2 H (27.0-31.0) pg MCHC 33.9 (32.0-36.0) g/dL RDW 13.5 (11.5-14.5) % Plt Count 207 (150-400) 10^3/uL MPV 9.9 (7.4-10.4) fL Immature Gran % (Auto) 0.2 (0.0-5.0) % Neut % (Auto) 89.3 H (50.0-70.0) % Lymph % (Auto) 6.7 L (20.0-40.0) % [place] % (Auto) 2.8 (2.0-8.0) % Eos % (Auto) 0.8 L (1.0-3.0) % Baso % (Auto) 0.2 (0.0-1.0) % Immature Gran # (Auto) 0.03 (0.00-0.50) 10^3/uL Neut # (Auto) 11.42 H (2.50-7.00) 10^3/uL Lymph # (Auto) 0.86 L (1.00-4.00) 10^3/uL [place] # (Auto) 0.36 (0.10-0.80) 10^3/uL Eos # (Auto) 0.10 (0.10-0.30) 10^3/uL Baso # (Auto) 0.02 (0.00-0.10) 10^3/uL Sodium 141 (136-145) mmol/L Potassium 3.7 (3.3-5.3) mmol/L Chloride 105 (98-115) mmol/L Carbon Dioxide 25.1 (21.0-32.0) mmol/L Anion Gap 14.6 (5-15) mmol/L BUN 8 (6-25) mg/dL Creatinine 0.68 (0.51-1.17) mg/dL Est Cr Clr Drug Dosing 95.82 mL/min Estimated GFR (MDRD) > 60 mL/min Glucose 101 H (75 - 99) mg/dL Calcium 7.8 L (8.7-10.3) mg/dL Total Bilirubin 0.4 (0.2-1.0) mg/dL AST 17 (15-37) U/L ALT 13 (12-78) U/L Alkaline Phosphatase 48 (46-116) IU/L Total Protein 6.7 (6.4-8.2) g/dL Albumin 3.52 (3.00-4.80) g/dL Lipase 82 (73-393) U/L HCG, Qual Negative (NEGATIVE) Specimen Type . Urine Color Dark yellow H (YELLOW) Urine Appearance Clear (CLEAR) Urine pH 5.5 (5.0-9.0) Ur Specific [place] >= 1.030 (1.005-1.030) Urine Protein Negative (NEGATIVE) mg/dL Urine Glucose (UA) Negative (NEGATIVE) mg/dL Urine Ketones Negative (NEGATIVE) mg/dL Urine Occult Blood Negative (NEGATIVE) Urine Nitrite Negative (NEGATIVE) Urine Bilirubin Negative (NEGATIVE) Urine Urobilinogen 0.2 (0.2-1.0) E.U./dL Ur Leukocyte Esterase Negative (NEGATIVE) Meds: Medications Discontinued Medications Generic Name Dose Route Start Last Admin Trade Name Freq PRN Reason Stop Dose Admin Sodium Chloride 1,000 mls @ 999 mls/hr 07/19/19 00:19 07/19/19 00:47 Normal Saline IV 02/20/20 01:19 999 mls/hr .BOLUS ONE Administration Ondansetron HCl 4 mg 07/19/19 00:20 07/19/19 00:39 Zofran IVPUSH 07/19/19 00:21 4 mg ONETIME ONE Administration Ondansetron HCl 12 mg 07/19/19 01:48 Zofran Odt PO 07/19/19 01:49 ONETIME ONE - Re-Assessments/Exams Free Text/Narrative Re-Assessment/Exam: 07/19/19 01:42 Influenza- neg 07/19/19 01:45 Pt denies abdominal pain. Pt reports nausea improved after zofran. Pt is alert and oriented x 4. Pt afebrile and nontoxic appearing. Departure - Departure Time of Disposition: 02:03 Disposition: Home, Self-Care 01 Condition: Good Clinical Impression: Viral gastroenteritis Leukocytosis, unspecified Qualifiers: Leukocytosis type: leukemoid reaction Qualified Code(s): D72.823 - Leukemoid reaction - Discharge Information Prescriptions: Ondansetron [Zofran ODT] 4 mg PO Q6H PRN #10 tab.dis PRN Reason: Vomiting Instructions: Viral Gastroenteritis, Adult Referrals: Maryjane Bentley, BUILDING ASSOCIATE [Primary Care Provider] - Forms: ED Department Discharge Additional Instructions: 1. discharge home 2. zofran 4mg ODT Q6 as needed for vomiting 3. clear liquid diet and progress as tolerated 4. follow up with PCP if symptoms continue for repeat CBC and further evaluation and treatment next 48-72 hours 5. return to ER for worsening symptoms Sepsis Event Note - Focused Exam Vital Signs: Vital Signs Temp Pulse Resp BP Pulse Ox 07/19/19 00:51 35.9 C L 94 16 110/60 95 Date Exam was Performed: 07/19/19 Time Exam was Performed: 02:03 - Assessment/Plan Assessment:: 1. Viral gastroenteritis 2. mild Leukocytosis Plan: 1. discharge home 2. zofran 4mg ODT Q6 as needed for vomiting 3. clear liquid diet and progress as tolerated 4. follow up with PCP if symptoms continue for repeat CBC and further evaluation and treatment next 48-72 hours 5. return to ER for worsening symptoms
[2019-07-19 01:03] VITALS: BP 110/60; PULSE 94
[2019-07-19 01:35] LABS: ANION GAP 14.6 mmol/L (5-15); CHLORIDE,CL 105 mmol/L (98-115); SODIUM,NA 141 mmol/L (136-145)
[2019-07-19] MEDS ORDERED: Ondansetron 4 MG Tab.DIS PO ONE (01:48)
== END 2019-07-19 02:18 | disposition home or self-care (01) ==
LOC: SUPCPDRO 00:01 → KA.ED 00:01
DX: A08.4 Viral intestinal infection, unspecified (principal); D72.823 Leukemoid reaction; K51.90 Ulcerative colitis, unspecified, without complications; Z91.030 Bee allergy status; Z79.899 Other long term (current) drug therapy
CPT/HCPCS: 36415; 80053; 81003; 83690; 84703; 85025; 87804; 96361; 96374; 99283; 99284; A9270; J2405; J7030

== ENCOUNTER 2020-11-08 09:39 | Emergency (ER) | payer OTHER ==
[2020-11-08 10:13] VITALS: BP 106/62; PULSE 63
--- NOTE | 2020-11-08 10:21 | EDM.PDOC ---
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 PT DESCRIBED SPOTTING BROWN/OLD BLOOD AND STATES THIS AM SHE DIDN'T NOTICE ANY ADDITION SPOTTING OR BLEEDING. PT REPORTS HER TYPE AND RH IS A POSITIVE AND HAS NEVER REQUIRED RHOGAM. PT DENIES DYSURIA, URINARY FREQUENCY OR URGENCY. PT DENIES ABDOMINAL PAIN OR CRAMPING. PT DENIES BACK PAIN OR NAUSEA/VOMITING. Onset Date: 11/07/20 Duration: Day(s): (1) Location: Reports: Pelvis Improves with: Reports: None Worsens with: Reports: None Associated Symptoms: Reports: No Other Symptoms - Related Data Allergies Allergy/AdvReac Type Severity Reaction Status Date / Time venom-honey bee Allergy Swelling Verified 11/08/20 10:13 [bee venom (honey bee)] Home Meds: Home Meds Acetaminophen [Tylenol] 650 mg PO Q4H PRN tablet 05/12/18 [Rx] Dicyclomine [Bentyl] 20 mg PO DAILY PRN 07/19/19 [History] Hyoscyamine [Hyomax-SL] 0.125 mg PO DAILY PRN 07/19/19 [History] Ondansetron [Zofran ODT] 4 mg PO Q6H PRN #10 tab.dis 07/19/19 [Rx] azaTHIOprine [Azathioprine] 50 mg PO BID 07/19/19 [History] sulfaSALAzine 1,000 mg PO QID 07/19/19 [History] Past Medical History HEENT History: Reports: Impaired Vision Other HEENT History: glasses Cardiovascular History: Reports: Heart Murmur Respiratory History: Reports: None Other Respiratory History: current influenza Gastrointestinal History: Reports: None Other Gastrointestinal History: clostridium difficile history Genitourinary History: Reports: None CHILDCARE CENTER DIRECTOR History: Reports: , Spontaneous , Other (See Below) Other CHILDCARE CENTER DIRECTOR History: Pt currently due October 08, 2018. Pt 2 Musculoskeletal History: Reports: None Neurological History: Reports: None Other Neuro History: complains of dizziness today Psychiatric History: Reports: Anxiety, Depression, Panic Attack Endocrine/Metabolic History: Reports: None Hematologic History: Reports: Anemia Immunologic History: Reports: None Oncologic (Cancer) History: Reports: None Dermatologic History: Reports: None - Infectious Disease History Infectious Disease History: Reports: C-Difficile - Past Surgical History Cardiovascular Surgical History: Reports: None GI Surgical History: Reports: None Female Surgical History: Reports: D&C Musculoskeletal Surgical History: Reports: None Social & Family History - Family History Family Medical History: No Pertinent Family History - Caffeine Use Caffeine Use: Reports: None Caffeine Use Comment: did not ask ED ROS GENERAL - Review of Systems Review Of Systems: See Below Constitutional: Reports: No Symptoms HEENT: Reports: No Symptoms Respiratory: Reports: No Symptoms Cardiovascular: Reports: No Symptoms Endocrine: Reports: No Symptoms GI/Abdominal: Reports: No Symptoms : Reports: Other (VAGINAL BLEEDING IN ) Musculoskeletal: Reports: No Symptoms Skin: Reports: No Symptoms Neurological: Reports: No Symptoms Psychiatric: Reports: No Symptoms Hematologic/Lymphatic: Reports: No Symptoms Immunologic: Reports: No Symptoms ED EXAM - Physical Exam Exam: See Below Exam Limited By: No Limitations General Appearance: Alert, WD/WN, No Apparent Distress Head: Atraumatic, Normocephalic Neck: Normal Inspection, Supple, Non-Tender, Full Range of Motion Respiratory/Chest: No Respiratory Distress, Lungs Clear, Normal Breath Sounds, No Accessory Muscle Use, Chest Non-Tender Cardiovascular: Normal Peripheral Pulses, Regular Rate, Rhythm, No Edema, No Gallop, No JVD, No Murmur, No Rub GI/Abdominal Exam: Normal Bowel Sounds, Soft, Non-Tender, No Organomegaly, No Distention, No Abnormal Bruit, No Mass, Pelvis Stable (Female) Exam: Other (DEFERRED) Heart Tones: Not Union Movement: Not Appreciated Back Exam: Normal Inspection, Full Range of Motion, NT Extremities: Normal Inspection, Normal Range of Motion, Non-Tender, Normal Capillary Refill, No Pedal Edema Neurological: Alert, Oriented, CN II-XII Intact, Normal Cognition, Normal Gait, Normal Reflexes, No Motor/Sensory Deficits Psychiatric: Normal Affect, Normal Mood Skin Exam: Warm, Dry, Intact, Normal Color, No Rash Lymphatic: No Adenopathy Course - Vital Signs Last Recorded V/S: Last Vital Signs Temp 98.2 F 06/12/21 10:05 Pulse 63 11/08/20 10:05 Resp 18 11/08/20 10:05 BP 106/62 11/08/20 10:05 Pulse Ox 97 11/08/20 10:05 - Orders/Labs/Meds Labs: Laboratory Tests 11/08/20 11/08/20 11/08/20 Range/Units 10:19 10:45 10:45 WBC 5.06 (5.00-10.00) 10^3/uL RBC 3.14 L (3.80-5.50) 10^6/uL Hgb 10.4 L D (12.0-16.0) g/dL Hct 30.5 L (37.0-47.0) % MCV 97.1 H (82.0-92.0) fL MCH 33.1 H (27.0-31.0) pg MCHC 34.1 (32.0-36.0) g/dL RDW 12.8 (11.5-14.5) % Plt Count 213 (150-400) 10^3/uL MPV 9.8 (7.4-10.4) fL Immature Gran % (Auto) 0.2 (0.0-5.0) % Neut % (Auto) 66.2 (50.0-70.0) % Lymph % (Auto) 24.7 (20.0-40.0) % [place] % (Auto) 7.1 (2.0-8.0) % Eos % (Auto) 1.6 (1.0-3.0) % Baso % (Auto) 0.2 (0.0-1.0) % Neut # (Auto) 3.35 (2.50-7.00) 10^3/uL Lymph # (Auto) 1.25 (1.00-4.00) 10^3/uL [place] # (Auto) 0.36 (0.10-0.80) 10^3/uL Eos # (Auto) 0.08 L (0.10-0.30) 10^3/uL Baso # (Auto) 0.01 (0.00-0.10) 10^3/uL Immature Gran # (Auto) 0.01 (0.00-0.50) 10^3/uL HCG, Quant [id number] mIU/mL Specimen Type Urinvoid Urine Color Yellow (YELLOW) Urine Appearance Slightly cloudy H (CLEAR) Urine pH 6.0 (5.0-9.0) Ur Specific [place] 1.025 (1.005-1.030) Urine Protein Negative (NEGATIVE) mg/dL Urine Glucose (UA) Negative (NEGATIVE) mg/dL Urine Ketones 15 H (NEGATIVE) mg/dL Urine Occult Blood Negative (NEGATIVE) Urine Nitrite Negative (NEGATIVE) Urine Bilirubin Negative (NEGATIVE) Urine Urobilinogen 0.2 (0.2-1.0) E.U./dL Ur Leukocyte Esterase Negative (NEGATIVE) Urine RBC Not seen (0-5) /HPF Urine WBC Not seen (0-5) /HPF Ur Epithelial Cells Occasional /LPF Amorphous Sediment Moderate H (0/HPF) /HPF Urine Mucus Rare H (NEGATIVE) /LPF Departure - Departure Time of Disposition: 11:59 Disposition: Home, Self-Care 01 Condition: Good Clinical Impression: Threatened in early - Discharge Information Instructions: Threatened Miscarriage, [id number] Referrals: Maryjane Bentley CAMBERING MACHINE OPERATOR [Primary Care Provider] - Forms: ED Department Discharge Additional Instructions: 1. DISCHARGE HOME 2. FOLLOW UP IN CLINIC 11/10/2020 FOR ULTRASOUND TO CONFIRM HEART TONES 3. RETURN TO ER FOR SEVERE BLEEDING-MORE THAN 5 PADS IN 1 HOUR OR SEVERE ABDOMINAL CRAMPING/PAIN 4. PELVIC REST Sepsis Event Note (ED) - Evaluation Sepsis Screening Result: No Definite Risk - Focused Exam Vital Signs: Vital Signs Temp Pulse Resp BP Pulse Ox 11/08/20 10:05 98.2 F 63 18 106/62 97 - Assessment/Plan Assessment:: 1. THREATENED MISCARRIAGE Plan: 1. DISCHARGE HOME 2. FOLLOW UP IN CLINIC 11/10/2020 FOR ULTRASOUND TO CONFIRM HEART TONES 3. RETURN TO ER FOR SEVERE BLEEDING-MORE THAN 5 PADS IN 1 HOUR OR SEVERE ABDOMINAL CRAMPING/PAIN 4. PELVIC REST
== END 2020-11-08 12:20 | disposition home or self-care (01) ==
LOC: KA.ED 09:39
DX: O20.0 Threatened abortion (principal); Z91.030 Bee allergy status; Z3A.09 9 weeks gestation of pregnancy
CPT/HCPCS: 36415; 81001; 84702; 85025; 99284

== ENCOUNTER 2023-01-20 20:07 | Emergency (ER) | payer MEDICAID, OTHER ==
[2023-01-20 20:36] VITALS: BP 121/72; PULSE 92
[2023-01-20 21:25] LABS: BASOPHILS ABSOLUTE AUTO 0.03 10^3/uL (0.00-0.10); BASOPHILS PERCENT AUTO 0.3 % (0.0-1.0); EOSINOPHILS ABSOLUTE AUTO 0.12 10^3/uL (0.10-0.30); EOSINOPHILS PERCENT AUTO 1.3 % (1.0-3.0); HEMATOCRIT 33.3 % (37.0-47.0); HEMOGLOBIN 11.3 g/dL (12.0-16.0); IMMATURE GRAN ABSOLUTE AUTO 0.05 10^3/uL (0.00-0.50); IMMATURE GRAN PERCENT AUTO 0.5 % (0.0-5.0); LYMPHOCYTES ABSOLUTE AUTO 1.93 10^3/uL (1.00-4.00); LYMPHOCYTES PERCENT AUTO 21.1 % (20.0-40.0); MEAN CORPUSCULAR HEMOGLOBIN 30.8 pg (27.0-31.0); MEAN CORPUSCULAR HGB CONC 33.9 g/dL (32.0-36.0); MEAN CORPUSCULAR VOLUME 90.7 fL (82.0-92.0); MEAN PLATELET VOLUME 9.7 fL (7.4-10.4); MONOCYTES ABSOLUTE AUTO 0.56 10^3/uL (0.10-0.80); MONOCYTES PERCENT AUTO 6.1 % (2.0-8.0); NEUTROPHILS ABSOLUTE AUTO 6.45 10^3/uL (2.50-7.00); NEUTROPHILS PERCENT AUTO 70.7 % (50.0-70.0); PLATELET COUNT,PLT 187 10^3/uL (150-400); RED BLOOD CELL COUNT 3.67 10^6/uL (3.80-5.50); RED CELL DISTRIBUTION WIDTH 13.1 % (11.5-14.5); WHITE BLOOD CELL COUNT,WBC 9.14 10^3/uL (5.00-10.00)
[2023-01-20 21:36] LABS: APPEARANCE,URINE CLOUDY (CLEAR); BILIRUBIN,URINE NEGATIVE (NEGATIVE); COLOR,URINE YELLOW (YELLOW); GLUCOSE,URINE NEGATIVE (NEGATIVE); KETONES,URINE NEGATIVE (NEGATIVE); LEUKOCYTE ESTERASE,URINE SMALL (NEGATIVE); NITRITE,URINE NEGATIVE (NEGATIVE); OCCULT BLOOD,URINE NEGATIVE (NEGATIVE); PROTEIN,URINE NEGATIVE (NEGATIVE); UROBILINOGEN,URINE 0.2 E.U./dL (0.2-1.0)
[2023-01-20 21:40] LABS: ANION GAP 13.6 mmol/L (5-15); CALCIUM 8.2 mg/dL (8.7-10.3); CARBON DIOXIDE,CO2 25.4 mmol/L (21.0-32.0); CREATININE 0.47 mg/dL (0.51-1.17); EST CRCL DRUG DOSING (CG) 136.87 mL/min
[2023-01-20 21:48] LABS: BACTERIA,URINE FEW /HPF (NONE TO FEW); EPITHELIAL CELLS,URINE FEW /LPF; RBC,URINE 0-5 /HPF (0-5); WBC,URINE 0-5 /HPF (0-5); YEAST,URINE OCCASIONAL /HPF (NEGATIVE)
== END 2023-01-20 22:18 | disposition home or self-care (01) ==
LOC: KA.ED 20:07
DX: O26.892 Other specified pregnancy related conditions, second trimester (principal); R42 Dizziness and giddiness; Z79.899 Other long term (current) drug therapy; Z91.030 Bee allergy status; Z3A.16 16 weeks gestation of pregnancy
CPT/HCPCS: 36415; 80048; 81001; 85025; 87086; 99284

== ENCOUNTER 2023-03-02 12:16 | Emergency (ER) | payer OTHER, MEDICAID ==
[2023-03-02] MEDS ORDERED: Sodium Chloride 0.9% 1,000 ML IV ONE (12:49)
[2023-03-02 12:54] LABS: BASOPHILS ABSOLUTE AUTO 0.02 10^3/uL (0.00-0.10); BASOPHILS PERCENT AUTO 0.2 % (0.0-1.0); EOSINOPHILS ABSOLUTE AUTO 0.11 10^3/uL (0.10-0.30); EOSINOPHILS PERCENT AUTO 1.1 % (1.0-3.0); HEMATOCRIT 33.1 % (37.0-47.0); HEMOGLOBIN 11.3 g/dL (12.0-16.0); IMMATURE GRAN ABSOLUTE AUTO 0.05 10^3/uL (0.00-0.50); IMMATURE GRAN PERCENT AUTO 0.5 % (0.0-5.0); LYMPHOCYTES ABSOLUTE AUTO 1.56 10^3/uL (1.00-4.00); LYMPHOCYTES PERCENT AUTO 15.1 % (20.0-40.0); MEAN CORPUSCULAR HEMOGLOBIN 31.7 pg (27.0-31.0); MEAN CORPUSCULAR HGB CONC 34.1 g/dL (32.0-36.0); MEAN PLATELET VOLUME 10.3 fL (7.4-10.4); MONOCYTES ABSOLUTE AUTO 0.45 10^3/uL (0.10-0.80); MONOCYTES PERCENT AUTO 4.4 % (2.0-8.0); NEUTROPHILS ABSOLUTE AUTO 8.15 10^3/uL (2.50-7.00); NEUTROPHILS PERCENT AUTO 78.7 % (50.0-70.0); PLATELET COUNT,PLT 191 10^3/uL (150-400); RED BLOOD CELL COUNT 3.56 10^6/uL (3.80-5.50); RED CELL DISTRIBUTION WIDTH 13.4 % (11.5-14.5); WHITE BLOOD CELL COUNT,WBC 10.34 10^3/uL (5.00-10.00)
[2023-03-02 13:05] LABS: ALANINE AMINOTRANSFERASE,ALT 12 U/L (14-63); ALBUMIN 3.12 g/dL (3.40-5.00); ALKALINE PHOSPHATASE 63 U/L (46-116); ANION GAP 13.9 mmol/L (5-15); ASPARTATE AMNIOTRANSFERASE,AST 15 U/L (15-37); BILIRUBIN TOTAL 0.1 mg/dL (0.2-1.0); BLOOD UREA NITROGEN,BUN 4 mg/dL (7-18); CALCIUM 8.1 mg/dL (8.7-10.3); CARBON DIOXIDE,CO2 23.7 mmol/L (21.0-32.0); CHLORIDE,CL 104 mmol/L (98-107); CREATININE 0.48 mg/dL (0.51-1.17); ESTIMATED GFR 134 mL/min (>=60); GLUCOSE RANDOM 75 mg/dL (70-140); POTASSIUM,K 3.6 mmol/L (3.5-5.1); PROTEIN TOTAL,TP 6.6 g/dL (6.4-8.2); SODIUM,NA 138 mmol/L (136-145)
[2023-03-02 13:10] VITALS: BP 104/56; PULSE 56
[2023-03-02 14:25] LABS: APPEARANCE,URINE SLIGHTLY CLOUDY (CLEAR); BILIRUBIN,URINE NEGATIVE (NEGATIVE); COLOR,URINE LIGHT YELLOW (YELLOW); GLUCOSE,URINE NEGATIVE (NEGATIVE); KETONES,URINE 40 mg/dL (NEGATIVE); LEUKOCYTE ESTERASE,URINE MODERATE (NEGATIVE); NITRITE,URINE NEGATIVE (NEGATIVE); OCCULT BLOOD,URINE NEGATIVE (NEGATIVE); PROTEIN,URINE NEGATIVE (NEGATIVE); UROBILINOGEN,URINE 0.2 E.U./dL (0.2-1.0)
[2023-03-02 14:29] LABS: BACTERIA,URINE FEW /HPF (NONE TO FEW); EPITHELIAL CELLS,URINE FEW /LPF; RBC,URINE 0-5 /HPF (0-5); WBC,URINE 20-30 /HPF (0-5)
== END 2023-03-02 14:49 | disposition home or self-care (01) ==
LOC: KA.ED 12:16
DX: O99.282 Endocrine, nutritional and metabolic diseases complicating pregnancy, second trimester (principal); E86.0 Dehydration; R20.2 Paresthesia of skin; Z79.899 Other long term (current) drug therapy; Z88.7 Allergy status to serum and vaccine; Z3A.21 21 weeks gestation of pregnancy
CPT/HCPCS: 36415; 80053; 81001; 85025; 87086; 96360; 99284; 99284-25; J7030